=== PATIENT | female | born 1950 | race Caucasian/White ===

== ENCOUNTER → 2019-10-07 | Outpatient (REF) | payer OTHER ==
[2019-10-07 18:20] LABS: ALBUMIN 3.3 GM/DL (3.2-5.2); BILIRUBIN,TOTAL 0.4 MG/DL (0.2-1.0); CALCIUM LEVEL 9.4 MG/DL (8.8-10.2); CREATININE FOR GFR 1.2 MG/DL (0.55-1.30); FREE T4 1.15 NG/DL (0.76-1.46); GLOMERULAR FILTRATION RATE 47.3 (>39); POTASSIUM SERUM 4.2 MEQ/L (3.5-5.1); THYROID STIMULATING HORMONE 1.5 uIU/ML (0.358-3.740); TOTAL PROTEIN 6.6 GM/DL (6.4-8.2); URIC ACID 2.9 MG/DL (2.6-6.0)
[2019-10-07 18:52] LABS: HEMOGLOBIN A1c 5.5 %
== END ==
LOC: M SFHCPLAZ 14:58
PROVIDERS: ATTEND Nurse Practitioner Family
DX: E11.9 Type 2 diabetes mellitus without complications (principal); Z87.39 Personal history of other diseases of the musculoskeletal system and connective tissue; F41.9 Anxiety disorder, unspecified; Z79.01 Long term (current) use of anticoagulants
CPT/HCPCS: 36415; 80053; 83036; 84439; 84443; 84550; 85610; G0463

== ENCOUNTER → 2019-10-20 | Outpatient (REF) | payer OTHER ==
[~2019-10-20] MED LIST: CIPR500T3 PO; GLIM2TAB29 PO; LOSA25TA14 PO; NITR100C2; VERA240T3; WARF-20
[2019-10-20 16:28] LABS: MALB URINE SIEMENS 17.4 MG/L; MAU/CREAT RATIO 16.1 MCG/MG (0.0-30.0)
== END ==
LOC: M SFHCPLAZ 15:09
PROVIDERS: ATTEND Nurse Practitioner Family
DX: E11.9 Type 2 diabetes mellitus without complications (principal)

== ENCOUNTER → 2019-12-07 | Outpatient (REF) | payer OTHER ==
[2019-12-07 15:29] LABS: INR 4.06; PROTHROMBIN TIME 40.4 SECONDS (11.8-14.0)
[2019-12-07 15:30] LABS: PARTIAL THROMBOPLASTIN TIME 76.5 SECONDS (25.0-38.4)
== END ==
LOC: M SMT 13:34
PROVIDERS: ATTEND Nurse Practitioner Family
DX: Z79.01 Long term (current) use of anticoagulants (principal)

== ENCOUNTER → 2020-01-05 | Outpatient (CLI) | payer OTHER ==
[2020-01-05 16:46] LABS: INR 2.8; PROTHROMBIN TIME 30.1 SECONDS (12.5-14.3)
== END ==
LOC: M PLALAB 13:47
PROVIDERS: ATTEND Nurse Practitioner Family
DX: Z79.01 Long term (current) use of anticoagulants (principal); Z51.81 Encounter for therapeutic drug level monitoring

== ENCOUNTER → 2020-01-21 | Outpatient (CLI) | payer OTHER ==
[2020-01-21 15:42] LABS: HEMATOCRIT 42.6 % (36.0-47.0); HEMOGLOBIN 13.4 g/dl (12.0-15.5); MEAN CORPUSCULAR HEMOGLOBIN 30.6 pg (27.0-33.0); MEAN CORPUSCULAR HGB CONC 31.5 g/dl (32.0-36.5); MEAN CORPUSCULAR VOLUME 97.3 fl (80.0-96.0); PLATELET COUNT, AUTOMATED 232 10^3/uL (150-450); RED BLOOD COUNT 4.38 10^6/uL (4.00-5.40); WHITE BLOOD COUNT 7.4 10^3/uL (4.0-10.0)
[2020-01-21 15:44] LABS: APPEARANCE, URINE CLOUDY (CLEAR); BACTERIA, URINE AUTO 1+ (NEGATIVE); BILIRUBIN, URINE AUTO NEGATIVE (NEGATIVE); BLOOD, URINE BLOOD 2+ (NEGATIVE); COLOR, URINE YELLOW (YELLOW); GLUCOSE, URINE (UA) AUTO NEGATIVE (NEGATIVE); KETONE, URINE AUTO NEGATIVE (NEGATIVE); LEUKOCYTE ESTERASE, URINE AUTO 1+ (NEGATIVE); MUCUS, URINE SMALL (NEGATIVE); NITRITE, URINE AUTO POSITIVE (NEGATIVE); PROTEIN, URINE AUTO NEGATIVE (NEGATIVE); RBC, URINE AUTO 9 /HPF (0-3); SPECIFIC GRAVITY URINE AUTO 1.021 (1.002-1.035); SQUAMOUS EPITHELIAL CELL UR AU 5 /HPF (0-6); UROBILINOGEN, URINE AUTO 0.2 mg/dL (0.0-2.0); WBC, URINE AUTO 50 /HPF (0-3)
[2020-01-21 15:51] LABS: INR 2.79
[2020-01-21 18:25] LABS: CALCIUM LEVEL 9.4 MG/DL (8.8-10.2); CREATININE FOR GFR 1.27 MG/DL (0.55-1.30); GLOMERULAR FILTRATION RATE 44.3 (>39); POTASSIUM SERUM 4.1 MEQ/L (3.5-5.1)
--- NOTE | 2020-01-26 15:21 | REPPI ---
CHEST X-RAY: 2-VIEWS HISTORY: Preop. FINDINGS: The lungs are well-inflated and clear. The pleural angles are sharp. Right hemidiaphragm is slightly elevated. There are surgical clips in the right axillary soft tissues. Pulmonary vasculature is not increased. There are mild degenerative changes in the thoracic spine. IMPRESSION: No acute disease. MTDD
== END ==
LOC: M PLALAB 14:23 → M PLAIMG 14:23
PROVIDERS: ATTEND Nurse Practitioner Family
DX: Z01.818 Encounter for other preprocedural examination (principal); N32.81 Overactive bladder

== ENCOUNTER → 2020-01-26 | Outpatient (CLI) | payer OTHER | LOC: M LABSMTC 10:01 | PROVIDERS: ATTEND Anesthesiology | DX: Z01.812 Encounter for preprocedural laboratory examination (principal); Z20.828 Contact with and (suspected) exposure to other viral communicable diseases | CPT/HCPCS: C9803; U0003 ==

== ENCOUNTER 2020-01-31 05:57 | Day surgery (SDC) | payer OTHER ==
[~2020-01-31] VITALS: Ht 165.1 cm; Wt 113.4 kg
[~2020-01-31 05:57] MED LIST changes: -CIPR500T3 PO; -NITR100C2
[2020-01-31] MEDS ORDERED: ceFAZolin SOD 2 GM in IV 1 EA IV ONE (06:00)
[2020-01-31] MEDS ORDERED: LR 1,000 ML IV ONE (06:00)
[2020-01-31 06:57] LABS: INR 1.05; PROTHROMBIN TIME 13.9 SECONDS (12.5-14.3)
[2020-01-31] MEDS ORDERED: NITR100C2 (07:03)
[2020-01-31] MEDS ORDERED: BOTOX THERAPEUTIC 100 UNIT VIAL (J0585 PER 1 UNIT) As Ordered ONE (07:14)
[2020-01-31] MEDS ORDERED: propofoL 200 MG/20 ML VIAL As Ordered ONE (07:15)
[2020-01-31] MEDS ORDERED: LIDOCAINE 2% 100MG/5ML SDV (FOR ANES.) As Ordered ONE (07:16)
[2020-01-31] MEDS ORDERED: ONDANSETRON 4MG/2ML VIAL As Ordered ONE (07:16)
[2020-01-31] MEDS ORDERED: MIDAZOLAM INJ 2MG/2ML VIAL (J2250 PER 1MG) As Ordered ONE (07:17)
--- NOTE | 2020-01-31 08:09 | ROOPDOC ---
[facility] Report Of Operation Report of Operation DATE OF PROCEDURE: 01/31/20 PREPROCEDURE DIAGNOSES: OAB POSTPROCEDURE DIAGNOSES: Same + chronic cystitis PROCEDURE: Cystoscopy and Botox injection SURGEON: Kailash Peterson MD STUDIO MANAGER: None ANESTHESIA: MAC ESTIMATED BLOOD LOSS: Approximately 0 mL. COMPLICATIONS: None REMARKS: Chronic cystitis noted PROCEDURE NOTE: Pt has chronic OAB not managed by meds DESCRIPTION OF PROCEDURE: the patient was placed on the table and given sedation. she was then placed in the lithotomy position, prepped with betadine paint, draped in an aseptic manner and time out was performed. The cystoscope was then inserted into the meatus and advanced under direct vision of a 30 degree lens. the bladder was emptied and refilled. She was noted to have chronic cystitis. Botox was then injected in 10 areas of the bladder for a total of 100 units. The bladder was then drained, patient was awakened and sent to the recovery room having tolerated the procedure well. KAILASH PETERSON MD Jan 31, 2020 08:09
[2020-01-31] MEDS ORDERED: CIPR500T3 PO (08:16)
[2020-01-31 08:36] VITALS: BP 155/72
== END 2020-01-31 08:45 | disposition home or self-care (01) ==
LOC: M SDC 05:57
PROVIDERS: ATTEND Urology
DX: N32.81 Overactive bladder (principal); N30.10 Interstitial cystitis (chronic) without hematuria; E11.9 Type 2 diabetes mellitus without complications; Z79.01 Long term (current) use of anticoagulants; Z79.899 Other long term (current) drug therapy; Z86.718 Personal history of other venous thrombosis and embolism; I10 Essential (primary) hypertension; Z85.3 Personal history of malignant neoplasm of breast; Z92.3 Personal history of irradiation; Z92.21 Personal history of antineoplastic chemotherapy
CPT/HCPCS: 36415; 52287; 85610; J0585; J0690; J2250; J2405

== ENCOUNTER → 2020-02-25 | Outpatient (REF) | payer OTHER ==
[~2020-02-25] MED LIST changes: +CIPR500T3 PO; +NITR100C2
[2020-02-25 16:16] LABS: INR 3.19; PROTHROMBIN TIME 33.4 SECONDS (12.5-14.3)
== END ==
LOC: M PLALAB 12:37
PROVIDERS: ATTEND Nurse Practitioner Family
DX: Z86.718 Personal history of other venous thrombosis and embolism (principal); Z51.81 Encounter for therapeutic drug level monitoring

== ENCOUNTER → 2020-03-29 | Outpatient (CLI) | payer OTHER ==
[2020-03-29 16:58] LABS: INR 2.85; PROTHROMBIN TIME 30.6 SECONDS (12.5-14.3)
== END ==
LOC: M WUC 11:46
PROVIDERS: ATTEND Nurse Practitioner Family
DX: Z51.81 Encounter for therapeutic drug level monitoring (principal)

== ENCOUNTER → 2020-04-25 | Outpatient (REF) | payer OTHER, MEDICARE ==
[2020-04-25 14:26] LABS: INR 3.37; PROTHROMBIN TIME 34.9 SECONDS (12.5-14.3)
== END ==
LOC: M PLALAB 11:43
PROVIDERS: ATTEND Nurse Practitioner Family
DX: Z51.81 Encounter for therapeutic drug level monitoring (principal)

== ENCOUNTER → 2020-05-23 | Outpatient (CLI) | payer OTHER ==
[2020-05-23 15:00] VITALS: BP 128/70
--- NOTE | 2020-05-23 17:10 | REP ---
INDICATION: R92.8 ABN MAMMO RT BREAST,STEREOTACTIC BIOPSY X2. COMPARISON: 12/23/2019 and 01/28/2020. TECHNIQUE: Specimen radiographs performed. FINDINGS: Images of the specimens from the medial stereotactic biopsy show at least 1 or 2 calcifications in the specimens. One image of the specimens from the lateral stereotactic biopsy show multiple calcifications in the specimens. IMPRESSION: Successful stereotactic biopsy at 2 sites in the right breast. RECOMMENDATION: Clinical follow-up. <Electronically signed by Mansoor Blake > 05/23/20 [id number]
--- NOTE | 2020-05-23 17:18 | REP ---
INDICATION: R92.8 ABN MAMMO RT BREAST,POST STEREOTACTIC BIOPSY X2. COMPARISON: [id number]. TECHNIQUE: ML and CC views of the right breast are performed following 2 stereotactic biopsies, 1 medially and 1 laterally, in the posterior aspect of the right breast. FINDINGS: A biopsy clip is seen posteromedially at the site of the 1st stereotactic biopsy. The previously noted pleomorphic calcifications are no longer visualized. The clip is in good position. At the site of the more lateral biopsy a clip that has a coiled appearance is noted in place at the site of the biopsy and the previously noted microcalcifications are no longer visualized. IMPRESSION: Successful stereotactic biopsy at 2 locations in the right breast as discussed above. Appropriate biopsy clip placement at both sites. RECOMMENDATION: Clinical follow-up. <Electronically signed by Mansoor Blake > 05/23/20 [id number]
--- NOTE | 2020-05-23 18:43 | REP ---
INDICATION: R92.8 ABN MAMMO RT BREAST,STEREOTACTIC BIOPSY X2. COMPARISON: None. TECHNIQUE: The procedure was performed under the general supervision of Dr. Blake. The patient has a history of 2 clusters of multiple pleomorphic microcalcifications in the upper-outer quadrant of the right breast posteriorly seen on a previous mammogram dated 12/23/2019. The risks and benefits of the procedure were explained to the patient and informed consent was obtained. The more medial cluster of calcifications were addressed 1st. A craniocaudal approach was utilized. The calcifications were localized using stereotactic mammographic guidance. 1% Xylocaine was used as a local anesthetic. An 10 gauge, suction assisted Mammotome needle was inserted and 12 core biopsy samples were obtained. Specimen radiograph demonstrates the presence of calcifications to be within the specimen. A marker clip (HydroMARK shape 1) was placed at the biopsy site. The more lateral calcifications were then addressed. A craniocaudal approach was utilized. The calcifications were localized using stereotactic mammographic guidance. 1% Xylocaine was used as a local anesthetic. An 10 gauge, suction assisted Mammotome needle was inserted and 6 core biopsy samples were obtained. Specimen radiograph demonstrates the presence of calcifications to be within the specimen. A marker clip (HydroMARK shape 3 was placed at the biopsy site. The patient tolerated the procedure well and there were no immediate complications. After the appropriate amount of monitored convalescence, the patient was discharged from the department. FINDINGS: None IMPRESSION: Stereotactic right breast biopsy at 2 sites. <Electronically signed by Alvin Rodriguez > 05/23/20 [id number] <Electronically signed by Mansoor Blake > 05/23/20 [id number]
== END ==
LOC: M WHCPRO 13:07
PROVIDERS: ATTEND Surgery
DX: N60.11 Diffuse cystic mastopathy of right breast (principal); R92.0 Mammographic microcalcification found on diagnostic imaging of breast

== ENCOUNTER → 2020-05-30 | Outpatient (CLI) | payer MEDICARE, OTHER ==
--- NOTE | 2020-05-30 11:24 | REP ---
INDICATION: R92.8 ABN MAMMO LT BREAST,POST STEREOTATIC BIOPSY. Marker clip placement views. COMPARISON: Comparison mammography is dated December 23, 2019 and January 28, 2020. TECHNIQUE: Craniocaudal and mediolateral views of the left breast are obtained. FINDINGS: Cc and true mediolateral views of the left breast demonstrate that the needle biopsy marker clip placed at the time of today's stereotactic biopsy procedure is in good position in the region of the left breast where prior mammography showed microcalcifications. The micro calcific target has been removed. IMPRESSION: Marker clip in good position left breast. <Electronically signed by Laith Jackson > 05/30/20 1121
--- NOTE | 2020-05-30 13:02 | REP ---
INDICATION: R92.8 ABN MAMMO LT BREAST,STEREOTATIC BIOPSY. COMPARISON: Comparison mammography January 28, 2020.. TECHNIQUE: Two specimen radiographs are presented. Post left breast stereotactic needle biopsy. FINDINGS: Specimen radiography demonstrates what appears to be the entirety of the micro calcific target from the left breast in 2 of the removed biopsy specimens. IMPRESSION: Specimen radiography demonstrates the micro calcific target. <Electronically signed by Laith Jackson > 05/30/20 [id number]
--- NOTE | 2020-05-30 15:56 | REP ---
INDICATION: R92.8 ABN MAMMO LT BREAST,STEREOTATIC BIOPSY. COMPARISON: None. TECHNIQUE: The procedure was performed under the general supervision of Dr. Jackson. The risks and benefits of the procedure were explained to the patient and informed consent was obtained. The patient has a history of a micro calcific grouping in the upper outer quadrant of the left breast seen on a previous mammogram dated 01/28/2020. A craniocaudal approach was utilized. The calcifications were localized using stereotactic mammographic guidance. 1% Xylocaine was used as a local anesthetic. An 10 gauge, suction assisted Mammotome needle was inserted and 10 core biopsy samples were obtained. Specimen radiograph demonstrates the presence of calcifications to be within the specimen. A marker clip (HydroMARK shape 3) was placed at the biopsy site. The patient tolerated the procedure well and there were no immediate complications. After the appropriate amount of monitored convalescence, the patient was discharged from the department. FINDINGS: None IMPRESSION: Stereotactic left breast biopsy with marker clip placement (HydroMARK shape 3). <Electronically signed by Alvin Rodriguez > 05/30/20 1511 <Electronically signed by Laith Jackson > 05/30/20 [id number]
[2020-05-30 16:03] VITALS: BP 140/78
== END ==
LOC: M WHCPRO 08:23
PROVIDERS: ATTEND Surgery
DX: N60.12 Diffuse cystic mastopathy of left breast (principal); R92.8 Other abnormal and inconclusive findings on diagnostic imaging of breast

== ENCOUNTER → 2020-06-19 | Outpatient (CLI) | payer OTHER, MEDICARE ==
[2020-06-19 16:37] LABS: INR 2.03; PROTHROMBIN TIME 23.4 SECONDS (12.5-14.3)
== END ==
LOC: M WUC 14:20
PROVIDERS: ATTEND Nurse Practitioner Family
DX: Z79.01 Long term (current) use of anticoagulants (principal)

== ENCOUNTER → 2020-07-12 | Outpatient (CLI) | payer OTHER ==
[2020-07-12 16:30] LABS: INR 2.39; PROTHROMBIN TIME 26.6 SECONDS (12.5-14.3)
== END ==
LOC: M WUC 11:02
PROVIDERS: ATTEND Nurse Practitioner Family
DX: Z79.01 Long term (current) use of anticoagulants (principal); Z51.81 Encounter for therapeutic drug level monitoring

== ENCOUNTER → 2020-07-26 | Outpatient (CLI) | payer OTHER ==
[2020-07-26 12:04] LABS: INR 1.24; PROTHROMBIN TIME 15.9 SECONDS (12.5-14.3)
== END ==
LOC: M WUC 09:49
PROVIDERS: ATTEND Nurse Practitioner Family
DX: Z79.01 Long term (current) use of anticoagulants (principal); Z51.81 Encounter for therapeutic drug level monitoring

== ENCOUNTER → 2020-08-24 | Outpatient (CLI) | payer OTHER ==
[2020-08-24 17:26] LABS: INR 2.81; PROTHROMBIN TIME 30.2 SECONDS (12.5-14.3)
== END ==
LOC: M WUC 13:39
PROVIDERS: ATTEND Nurse Practitioner Family
DX: Z79.01 Long term (current) use of anticoagulants (principal); Z51.81 Encounter for therapeutic drug level monitoring

== ENCOUNTER → 2020-10-04 | Outpatient (CLI) | payer OTHER, MEDICARE ==
[2020-10-04 10:52] LABS: BASO % 0.6 % (0.0-1.0); EOS # 0.1 10^3/uL (0.0-0.5); EOS % 1.7 % (0.0-3.0); HEMATOCRIT 46.5 % (36.0-47.0); HEMOGLOBIN 15.2 g/dl (12.0-15.5); LYMPH # 2.2 10^3/uL (1.5-5.0); LYMPH % 33.9 % (24.0-44.0); MEAN CORPUSCULAR HEMOGLOBIN 31.1 pg (27.0-33.0); MEAN CORPUSCULAR HGB CONC 32.7 g/dl (32.0-36.5); MEAN CORPUSCULAR VOLUME 95.1 fl (80.0-96.0); MONO # 0.7 10^3/uL (0.0-0.8); MONO % 10.1 % (2.0-8.0); NEUTROPHILS # 3.5 10^3/uL (1.5-8.5); NEUTROPHILS % 53.5 % (36.0-66.0); PLATELET COUNT, AUTOMATED 233 10^3/uL (150-450); RED BLOOD COUNT 4.89 10^6/uL (4.00-5.40); WHITE BLOOD COUNT 6.5 10^3/uL (4.0-10.0)
[2020-10-04 11:02] LABS: INR 1.95; PROTHROMBIN TIME 22.7 SECONDS (12.5-14.3)
[2020-10-04 11:20] LABS: ALBUMIN 3.6 GM/DL (3.2-5.2); BILIRUBIN,TOTAL 0.5 MG/DL (0.2-1.0); CALCIUM LEVEL 9.6 MG/DL (8.8-10.2); CHOLESTEROL RISK RATIO 4.142 (<5); CREATININE FOR GFR 1.12 MG/DL (0.55-1.30); GLOMERULAR FILTRATION RATE 51.1 (>39); POTASSIUM SERUM 3.9 MEQ/L (3.5-5.1); TOTAL PROTEIN 6.7 GM/DL (6.4-8.2); URIC ACID 5.7 MG/DL (2.6-6.0)
[2020-10-04 11:21] LABS: HEMOGLOBIN A1c 5.4 %
== END ==
LOC: M WUC 08:30
PROVIDERS: ATTEND Nurse Practitioner Family
DX: E11.9 Type 2 diabetes mellitus without complications (principal); Z87.39 Personal history of other diseases of the musculoskeletal system and connective tissue; I10 Essential (primary) hypertension; Z13.220 Encounter for screening for lipoid disorders; Z79.01 Long term (current) use of anticoagulants; Z51.81 Encounter for therapeutic drug level monitoring

== ENCOUNTER → 2020-11-16 | Outpatient (REF) | payer OTHER, MEDICARE ==
[2020-11-16 14:56] LABS: INR 2.04; PROTHROMBIN TIME 23.5 SECONDS (12.7-14.5)
== END ==
LOC: M LABWUC 13:50
PROVIDERS: ATTEND Nurse Practitioner Family
DX: Z79.01 Long term (current) use of anticoagulants (principal)

== ENCOUNTER → 2020-11-24 | Outpatient (CLI) | payer OTHER ==
[~2020-11-24] MED LIST changes: +FLUO10CA16; +PRES10CA2 PO; +PROB250C PO; +WARF-60 PO
--- NOTE | 2020-11-24 10:34 | REP ---
INDICATION: N32.81 OVERACTIVE BLADDER Z01.818 PREOP TESTING. COMPARISON: PA and lateral chest dated 01/21/2020. TECHNIQUE: Upright PA and lateral chest. FINDINGS: The lung becker are clear. Cardiac size is normal. The brandon, mediastinum and skeletal structures are unremarkable. There is chronic elevation of the right hemidiaphragm, unchanged, likely eventration. IMPRESSION: Essentially negative PA and lateral chest There is no interval change. <Electronically signed by Mansoor Bain > 11/24/20 1032
[2020-11-24 11:56] LABS: HEMOGLOBIN 15.3 g/dl (12.0-15.5); MEAN CORPUSCULAR HEMOGLOBIN 31.2 pg (27.0-33.0); MEAN CORPUSCULAR HGB CONC 32.6 g/dl (32.0-36.5); MEAN CORPUSCULAR VOLUME 95.7 fl (80.0-96.0); PLATELET COUNT, AUTOMATED 227 10^3/uL (150-450); RED BLOOD COUNT 4.91 10^6/uL (4.00-5.40)
[2020-11-24 12:02] LABS: APPEARANCE, URINE HAZY (CLEAR); BACTERIA, URINE AUTO 1+ (NEGATIVE); BILIRUBIN, URINE AUTO NEGATIVE (NEGATIVE); BLOOD, URINE BLOOD 1+ (NEGATIVE); COLOR, URINE YELLOW (YELLOW); GLUCOSE, URINE (UA) AUTO NEGATIVE (NEGATIVE); KETONE, URINE AUTO NEGATIVE (NEGATIVE); LEUKOCYTE ESTERASE, URINE AUTO TRACE (NEGATIVE); MUCUS, URINE SMALL (NEGATIVE); NITRITE, URINE AUTO POSITIVE (NEGATIVE); PROTEIN, URINE AUTO 1+ mg/dL (NEGATIVE); RBC, URINE AUTO 4 /HPF (0-3); SPECIFIC GRAVITY URINE AUTO 1.017 (1.002-1.035); SQUAMOUS EPITHELIAL CELL UR AU 6 /HPF (0-6); UROBILINOGEN, URINE AUTO 0.2 mg/dL (0.0-2.0); WBC, URINE AUTO 9 /HPF (0-3)
[2020-11-24 12:11] LABS: INR 2.07; PROTHROMBIN TIME 23.7 SECONDS (12.7-14.5)
[2020-11-24 12:12] LABS: PARTIAL THROMBOPLASTIN TIME 47.6 SECONDS (25.9-37.0)
[2020-11-24 12:35] LABS: CALCIUM LEVEL 9.1 MG/DL (8.8-10.2); CREATININE FOR GFR 1.08 MG/DL (0.55-1.30); GLOMERULAR FILTRATION RATE 53.2 (>39); POTASSIUM SERUM 3.9 MEQ/L (3.5-5.1)
== END ==
LOC: M WUC 09:39
PROVIDERS: ATTEND Nurse Practitioner Family
DX: Z01.818 Encounter for other preprocedural examination (principal); N32.81 Overactive bladder; Z79.01 Long term (current) use of anticoagulants; Z79.899 Other long term (current) drug therapy
CPT/HCPCS: 36415; 71046; 80048; 81001; 85027; 85610; 85730; 87088; 87186; G0463

== ENCOUNTER → 2020-11-27 | Outpatient (CLI) | payer OTHER, MEDICARE | LOC: M LABSMTC 09:48 | PROVIDERS: ATTEND Anesthesiology | DX: Z01.818 Encounter for other preprocedural examination (principal); Z11.52 Encounter for screening for COVID-19 ==

== ENCOUNTER 2020-12-01 05:58 | Day surgery (SDC) | payer OTHER ==
[~2020-12-01] VITALS: Ht 165.1 cm; Wt 113.4 kg
[2020-12-01] MEDS ORDERED: BOTOX THERAPEUTIC 100 UNIT VIAL (J0585 PER 1 UNIT) INJ ONE (06:00)
[2020-12-01] MEDS ORDERED: LR 1,000 ML IV ONE (06:00)
[2020-12-01] MEDS ORDERED: ceFAZolin SOD 2 GM in IV 1 EA IV ONE (06:00)
[2020-12-01 06:57] LABS: INR 1.05; PROTHROMBIN TIME 14.1 SECONDS (12.7-14.5)
[2020-12-01 06:58] LABS: PARTIAL THROMBOPLASTIN TIME 37.3 SECONDS (25.9-37.0)
[2020-12-01] MEDS ORDERED: BOTOX THERAPEUTIC 100 UNIT VIAL (J0585 PER 1 UNIT) As Ordered ONE (07:09)
[2020-12-01] MEDS ORDERED: LIDOCAINE 2% 100MG/5ML SDV (FOR ANES.) As Ordered ONE (07:21)
[2020-12-01] MEDS ORDERED: ONDANSETRON 4MG/2ML VIAL As Ordered ONE (07:21)
[2020-12-01] MEDS ORDERED: propofoL 200 MG/20 ML VIAL As Ordered ONE (07:21)
[2020-12-01] MEDS ORDERED: fentaNYL 100 MCG/2 ML INJECTION (J3010) As Ordered ONE (07:21)
[2020-12-01] MEDS ORDERED: MIDAZOLAM INJ 2MG/2ML VIAL (J2250 PER 1MG) As Ordered ONE (07:21)
--- NOTE | 2020-12-01 08:34 | ROOPDOC ---
[facility] Report Of Operation Report of Operation DATE OF PROCEDURE: 12/01/20 PREPROCEDURE DIAGNOSES: [oab]. POSTPROCEDURE DIAGNOSES: [same]. PROCEDURE PERFORMED: [cysto with Botox 100 units]. SURGEON: [Cheryl], BREAKDOWN MAN: [none], ANESTHESIA: [mac]. ESTIMATED BLOOD LOSS: Approximately [0] mL. COMPLICATIONS: [none]. REMARKS: [70yo wf with refractory oab. Cysto with Botox arranged. Has had before and it helped. Informed consent obtained. Risks discussed including infection, pain, bleeding, scarring, failure of procedure, need for another procedure, injury to gu tract, risks of anesthesia and others. No guarantees given.]. FINDINGS: SPECIMENS REMOVED: [none] PROCEDURE NOTE: . DESCRIPTION OF PROCEDURE: [Met with pt in preop area and surgery discussed. Informed consent obtained. Pt wished to proceed. Questions answered. Pt brought to OR room. Dorsal litho position. Well padded. Surgery done under coverage of IV Ancef. Prepped and draped in sterile fashion. Time out performed. Mac anesthesia used. It worked very well. Cystoscopy performed with rigid scope. Chronic cystitis noted. No tumor or stone. Uo's found. Botox injected in form of 10 injections of 1cc each with 10 units of Botox per cc. 100 units injected. 3 more or less horizontal rows with 1 between uo's. No complications. Bladder emptied and scope removed. Pt left room in satisfactory condition. Home. Already on Macrobid. Spoke with daughter Deena after surgery.]. FERNANDA BECK MD Dec 01, 2020 08:34
[2020-12-01 08:53] VITALS: BP 126/58
== END 2020-12-01 09:30 | disposition home or self-care (01) ==
LOC: M SDC 05:58
PROVIDERS: ATTEND Urology
DX: N32.81 Overactive bladder (principal); N30.20 Other chronic cystitis without hematuria; I10 Essential (primary) hypertension; E11.9 Type 2 diabetes mellitus without complications; M10.9 Gout, unspecified; Z85.3 Personal history of malignant neoplasm of breast; Z86.718 Personal history of other venous thrombosis and embolism; Z79.01 Long term (current) use of anticoagulants; Z79.899 Other long term (current) drug therapy; Z92.21 Personal history of antineoplastic chemotherapy; Z92.3 Personal history of irradiation
CPT/HCPCS: 36415; 52287; 85610; 85730; J0585; J0690; J2250; J2405; J3010

== ENCOUNTER → 2020-12-22 | Outpatient (CLI) | payer OTHER ==
[~2020-12-22] MED LIST changes: -VERA240T3; +VERA240T71
[2020-12-22 13:31] LABS: INR 1.47; PROTHROMBIN TIME 18.2 SECONDS (12.7-14.5)
== END ==
LOC: M WUC 11:59
PROVIDERS: ATTEND Student in an Organized Health Care Education/Training Program
DX: Z51.81 Encounter for therapeutic drug level monitoring (principal); Z79.01 Long term (current) use of anticoagulants
CPT/HCPCS: 36415; 85610; G0463

== ENCOUNTER → 2021-01-11 | Outpatient (CLI) | payer OTHER ==
[2021-01-11 11:32] LABS: INR 2.88; PROTHROMBIN TIME 30.5 SECONDS (12.7-14.5)
== END ==
LOC: M WUC 10:02
PROVIDERS: ATTEND Nurse Practitioner Family
DX: Z79.01 Long term (current) use of anticoagulants (principal)

== ENCOUNTER → 2021-01-19 | Outpatient (CLI) | payer OTHER ==
[~2021-01-19] MED LIST changes: +VERA240T64; -VERA240T71
--- NOTE | 2021-01-19 15:32 | REPMRS ---
Patient History The patient states she had a clinical breast exam in 2020. No known family history of cancer. Benign stereotatic loc for ea lesion. of the left breast, May 30, 2020. Benign radio exam breast specimen. of the left breast, May 30, 2020. Benign stereotatic loc for ea lesion. of the right breast, May 23, 2020. Benign radio exam breast specimen. of the right breast, May 23, 2020. No Hormone Replacement Therapy F/U bilateral benign bx's Diagnostic Bilateral Mammo: January 19, 2021 - Exam #: [id number] Bilateral CC and MLO view(s) were taken. Technologist: Maura Jernigan, Technologist Prior study comparison: December 23, 2019, bilateral digital woman screen mammo performed at [facility]. September 01, 2018, bilateral digital mammo screening bilat, [facility]. December 30, 2011, bilateral digital mammo screening bilat, performed [facility]. FINDINGS: The breast tissue is extremely dense which could obscure a lesion on mammography. The Volpara volumetric breast density category is: D. There are stable post treatment changes on the right breast. There are 2 needle biopsy marker clips in the right breast and 1 in the left. The microcalcifications which prompted the biopsy on the left have been removed. The micro calcific cluster which was the target for 1 of the biopsies on the right has been removed as well. No suspicious abnormality is observed today in either breast. There is an extremely dense symmetrical pattern of residual fibroglandular tissue. There has been no change in the appearance of the mammogram from the previous studies. There is no interval development of dominant mass, archetectural distortion, or grouped microcalcifications suggestive of malignancy. 3-D tomosynthesis shows no additional findings. Assessment: BI-RADS/ACR category 2 mammogram. Benign Findings. Recommendation Routine screening mammogram of both breasts in 1 year (for women over age 40). This mammogram was interpreted with the aid of an FDA-approved computer-aided dectection system. Electronically Signed By: Laith Jackson MD 01/19/21 2320
== END ==
LOC: M WHC 12:52
PROVIDERS: ATTEND Surgery
DX: R92.8 Other abnormal and inconclusive findings on diagnostic imaging of breast (principal)
CPT/HCPCS: 77066; G0279

== ENCOUNTER → 2021-02-28 | Outpatient (CLI) | payer OTHER ==
[2021-02-28 16:39] LABS: INR 1.97; PROTHROMBIN TIME 22.8 SECONDS (12.7-14.5)
== END ==
LOC: M WUC 13:53
PROVIDERS: ATTEND Nurse Practitioner Family
DX: Z79.01 Long term (current) use of anticoagulants (principal); Z51.81 Encounter for therapeutic drug level monitoring

== ENCOUNTER → 2021-03-21 | Outpatient (CLI) | payer OTHER ==
[2021-03-21 13:15] LABS: BASO # 0.1 10^3/uL (0.0-0.2); BASO % 0.7 % (0.0-1.0); EOS # 0.1 10^3/uL (0.0-0.5); EOS % 1.8 % (0.0-3.0); HEMATOCRIT 47.2 % (36.0-47.0); HEMOGLOBIN 15.3 g/dl (12.0-15.5); LYMPH # 2.5 10^3/uL (1.5-5.0); LYMPH % 34.4 % (24.0-44.0); MEAN CORPUSCULAR HGB CONC 32.4 g/dl (32.0-36.5); MEAN CORPUSCULAR VOLUME 95.7 fl (80.0-96.0); MONO # 0.6 10^3/uL (0.0-0.8); MONO % 8.7 % (2.0-8.0); NEUTROPHILS # 3.9 10^3/uL (1.5-8.5); NEUTROPHILS % 54.1 % (36.0-66.0); PLATELET COUNT, AUTOMATED 236 10^3/uL (150-450); RED BLOOD COUNT 4.93 10^6/uL (4.00-5.40); WHITE BLOOD COUNT 7.2 10^3/uL (4.0-10.0)
[2021-03-21 13:31] LABS: INR 2.32; PROTHROMBIN TIME 25.8 SECONDS (12.7-14.5)
[2021-03-21 14:04] LABS: HEMOGLOBIN A1c 5.3 %
[2021-03-21 14:09] LABS: CREATININE, URINE 78.7 MG/DL; MALB URINE SIEMENS 6.9 MG/L; MAU/CREAT RATIO 8.7 MCG/MG (0.0-30.0)
[2021-03-21 14:10] LABS: ALBUMIN 3.3 GM/DL (3.2-5.2); BILIRUBIN,TOTAL 0.5 MG/DL (0.2-1.0); CALCIUM LEVEL 9.2 MG/DL (8.8-10.2); CHOLESTEROL RISK RATIO 4.543 (<5); CREATININE FOR GFR 1.18 MG/DL (0.55-1.30); GLOMERULAR FILTRATION RATE 47.9 (>39); POTASSIUM SERUM 3.9 MEQ/L (3.5-5.1); TOTAL PROTEIN 6.8 GM/DL (6.4-8.2)
== END ==
LOC: M WUC 09:24
PROVIDERS: ATTEND Nurse Practitioner Family
DX: E11.9 Type 2 diabetes mellitus without complications (principal); I10 Essential (primary) hypertension; Z79.01 Long term (current) use of anticoagulants

== ENCOUNTER → 2021-05-04 | Outpatient (CLI) | payer OTHER ==
[~2021-05-04] MED LIST changes: -FLUO10CA16; +FLUO10CA18; +LOSA25TA13 PO; -LOSA25TA14 PO
[2021-05-04 16:21] LABS: INR 2.07; PROTHROMBIN TIME 23.7 SECONDS (12.7-14.5)
== END ==
LOC: M WUC 13:16
PROVIDERS: ATTEND Nurse Practitioner Family
DX: Z51.81 Encounter for therapeutic drug level monitoring (principal); Z79.899 Other long term (current) drug therapy

== ENCOUNTER → 2021-06-04 | Outpatient (CLI) | payer OTHER ==
[~2021-06-04] MED LIST changes: -VERA240T64; +VERA240T64 PO
[2021-06-04 15:40] LABS: HEMATOCRIT 48.7 % (36.0-47.0); HEMOGLOBIN 15.8 g/dl (12.0-15.5); MEAN CORPUSCULAR HEMOGLOBIN 30.6 pg (27.0-33.0); MEAN CORPUSCULAR HGB CONC 32.4 g/dl (32.0-36.5); MEAN CORPUSCULAR VOLUME 94.4 fl (80.0-96.0); PLATELET COUNT, AUTOMATED 256 10^3/uL (150-450); RED BLOOD COUNT 5.16 10^6/uL (4.00-5.40); WHITE BLOOD COUNT 7.8 10^3/uL (4.0-10.0)
[2021-06-04 16:03] LABS: ALBUMIN 3.7 GM/DL (3.2-5.2); BILIRUBIN,TOTAL 0.4 MG/DL (0.2-1.0); CALCIUM LEVEL 9.5 MG/DL (8.8-10.2); CREATININE FOR GFR 1.23 MG/DL (0.55-1.30); GLOMERULAR FILTRATION RATE 45.7 (>39); POTASSIUM SERUM 4.3 MEQ/L (3.5-5.1); TOTAL PROTEIN 7.1 GM/DL (6.4-8.2)
== END ==
LOC: M PLAIMG 13:06
PROVIDERS: ATTEND Urology
DX: N32.81 Overactive bladder (principal); Z51.81 Encounter for therapeutic drug level monitoring; Z79.01 Long term (current) use of anticoagulants

== ENCOUNTER → 2021-06-04 | Outpatient (CLI) | payer OTHER ==
[2021-06-04 15:49] LABS: INR 2.06; PROTHROMBIN TIME 23.6 SECONDS (12.7-14.5)
== END ==
LOC: M PLALAB 13:04
PROVIDERS: ATTEND Nurse Practitioner Family
DX: Z51.81 Encounter for therapeutic drug level monitoring (principal); Z79.01 Long term (current) use of anticoagulants

== ENCOUNTER → 2021-06-05 | Outpatient (REF) | payer OTHER | LOC: M SMT 12:05 | PROVIDERS: ATTEND Urology | DX: N32.81 Overactive bladder (principal); Z79.899 Other long term (current) drug therapy ==

== ENCOUNTER → 2021-06-06 | Outpatient (CLI) | payer OTHER | LOC: M LABSMTC 11:19 | PROVIDERS: ATTEND Anesthesiology | DX: Z01.818 Encounter for other preprocedural examination (principal); Z11.52 Encounter for screening for COVID-19 ==